=== PATIENT | male | born 1985 | race Hispanic/Latino ===

== ENCOUNTER 2023-05-14 19:22 | Emergency (ER) | payer OTHER ==
[~2023-05-14] VITALS: Ht 177.8 cm; Wt 81.6 kg
[2023-05-14 19:38] LABS: BASOPHILS # (AUTO) 0.06 K/uL (0.00-0.20); BASOPHILS % (AUTO) 0.3 % (0.0-5.0); HEMATOCRIT 48.9 % (42-54); LYMPHOCYTES # (AUTO) 1.4 K/uL (1.0-4.8); LYMPHOCYTES % (AUTO) 7.2 % (21.0-51.0); MEAN CORPUSCULAR HEMOGLOBIN 30.4 pg (27.0-33.0); MONOCYTES # (AUTO) 2.2 K/uL (0.1-1.0); MONOCYTES % (AUTO) 11.2 % (3.0-13.0); NEUTROPHILS # (AUTO) 15.7 K/uL (1.8-7.7); NEUTROPHILS % (AUTO) 80.8 % (40.0-77.0); PLATELET COUNT (AUTO) 305 K/uL (130-400); RED BLOOD CELL COUNT(AUTO) 5.62 MIL/uL (4.50-6.20); RED CELL DISTRIBUTION WIDTH 12.7 % (11.0-15.5); WHITE BLOOD COUNT (AUTO) 19.4 K/uL (4.8-10.8)
[2023-05-14 19:54] LABS: CREATININE 1.3 mg/dL (0.5-1.5); POTASSIUM 3.6 mmol/L (3.5-5.1)
[2023-05-14 19:58] LABS: ALBUMIN 4.8 g/dL (3.5-5.0); BILIRUBIN,TOTAL 0.5 mg/dL (0.2-1.0); TOTAL PROTEIN, SERUM 8.9 g/dL (6.0-8.3)
[2023-05-14] MEDS ORDERED: LORAZEPAM 2 MG/ML 1 ML VIAL IVP ONE (20:00)
[2023-05-14 21:09] LABS: ALCOHOL, BLOOD < 3 mg/dL (0-10); THYROID STIMULATING HORMONE 0.44 uIU/mL (0.36-3.74)
[2023-05-14 22:14] LABS: AMPHET/METH SCREEN,URINE NEGATIVE (NEGATIVE); BARBITURATE SCREEN, URINE NEGATIVE (NEGATIVE); BENZODIAZEPINES SCREEN,URINE NEGATIVE (NEGATIVE); CANNABINOID SCREEN,URINE POSITIVE (NEGATIVE); COCAINE SCREEN,URINE NEGATIVE (NEGATIVE); OPIATE SCREEN,URINE NEGATIVE (NEGATIVE); PHENCYCLIDINE SCREEN,URINE NEGATIVE (NEGATIVE)
[2023-05-14 23:27] LABS: APPEARANCE,URINE CLEAR (CLEAR); BILIRUBIN,URINE NEGATIVE (NEGATIVE); COLOR,URINE LIGHT-YELLOW (YELLOW); GLUCOSE, URINE (UA) NEGATIVE (NEGATIVE); KETONES,URINE 150 mg/dL (NEGATIVE); LEUKOCYTE ESTERASE ,URINE NEGATIVE Leu/uL (NEGATIVE); NITRATE,URINE NEGATIVE (NEGATIVE); OCCULT BLOOD,URINE SMALL (NEGATIVE); PH,URINE 5.5 (5.0-8.0); PROTEIN,URINE 20 mg/dL (NEGATIVE); UROBILINOGEN,URINE 0.2 mg/dL (0.2-1.0)
[2023-05-14 23:38] LABS: ADD UA MICROSCOPIC YES
[2023-05-14 23:41] LABS: MUCUS,URINE RARE LPF (None Seen); RBC,URINE 0-1 /HPF (0-1); SQUAMOUS EPITHELIAL CELL,UR RARE /HPF (0-2)
[2023-05-15] MEDS ORDERED: LEVE1000 PO (01:02)
[2023-05-15 01:10] VITALS: BP 117/78; PULSE 85; RESP 18; O2SAT 98
== END 2023-05-15 01:19 | disposition home or self-care (01) ==
LOC: EDH 19:22
DX: R56.9 Unspecified convulsions (principal); F12.90 Cannabis use, unspecified, uncomplicated
CPT/HCPCS: 99285; 70450; 96374; 71045; 84443; 83735; 84484; 80053; 80305; 85025; 36415; 72125; 93005; 80177; 85027; 81001; J2060